=== PATIENT | female | born 1980 | race American Indian/Alaskan Native ===

== ENCOUNTER 2017-10-23 09:00 | Inpatient (IN) | payer OTHER ==
--- NOTE | 2017-10-23 09:32 | Anesthesia Consultation ---
Anesthesia Consult and Med Hx Date of service: 10/27/17 - Airway Anesthetic Teeth Evaluation: Poor ROM Head & Neck: Adequate Mental/Hyoid Distance: Adequate Mallampati Class: Class II Intubation Access Assessment: Probably Good - Pulmonary Exam CTA: Yes - Cardiac Exam Cardiac Exam: RRR - Pre-Operative Health Status ASA Pre-Surgery Classification: ASA2 Proposed Anesthetic Plan: General - Pulmonary Hx Smoking: No - Hematic Hx Anemia: Yes
[2017-10-23 09:41] LABS: Basophils % (Auto) 0.7 % (0.0-1.8); Eosinophils # (Auto) 0.2 K/mm3 (0.0-0.4); Eosinophils % (Auto) 3.2 % (0.0-4.3); Hematocrit 34.7 % (30.3-42.9); Hemoglobin 11.6 gm/dl (10.1-14.3); Lymphocytes % (Auto) 40.3 % (13.4-35.0); Mean Corpuscular HGB Conc 33 % (30-34); Mean Corpuscular Hemoglobin 30 pg (28-32); Mean Corpuscular Volume 89 fl (79-97); Monocytes # (Auto) 0.3 K/mm3 (0.0-0.8); Monocytes % (Auto) 6.6 % (0.0-7.3); Platelet Count 340 K/mm3 (140-440); Red Blood Count 3.92 M/mm3 (3.65-5.03); Red Cell Distribution Width 14.9 % (13.2-15.2)
[2017-10-27] MEDS ORDERED: ZOFRAN ONE (08:30)
[2017-10-27] MEDS ORDERED: ZEMURON IV ONE (08:37)
[2017-10-27] MEDS ORDERED: DIPRIVAN 10 MG/ML IV ONE (08:37)
[2017-10-27] MEDS ORDERED: XYLOCAINE MPF 2% ONE (08:37)
[2017-10-27] MEDS ORDERED: DILAUDID ONE (08:37)
[2017-10-27] MEDS ORDERED: MARCAINE 0.5% 30 ML INFILTRATI ONE (09:05)
[2017-10-27] MEDS ORDERED: DECADRON ONE ×2 (09:05)
--- NOTE | 2017-10-27 09:48 | History and Physical Report ---
History of Present Illness Date of examination: 10/27/17 Date of admission: 10/27/17 07:52 Chief complaint: Symptomatic uterine fibroids History of present illness: Pt is a 36yo BF LMP 10/09/17 presents for surgical evaluation and treatment of uterine fibroids. Pelvic u/s showed an enlarged uterus 20 x 17 x 12cm with multiple fibroids, the largest measuring 10 x 8 cm. And endometrial biopsy was done which was benign. Patient had a previous tubal ligation and does not desire future fertility. She was therefore scheduled for a total abdominal hysterectomy with ovarian conservation. 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 Family/Genetic History: none Social history: no significant social history, single Medications and Allergies Allergies Allergy/AdvReac Type Severity Reaction Status Date / Time No Known Allergies Allergy Verified 10/21/17 13:18 Home Medications Medication Instructions Recorded Confirmed Last Taken Type Docusate Sodium [Dok] 100 mg PO BID 10/20/17 10/27/17 10/24/17 History Ferrous Sulfate [Feosol] 325 mg PO TID 10/20/17 10/27/17 10/24/17 History Active Meds: Active Medications Celecoxib (Celebrex) 200 mg PO PREOP NR Stop: 10/27/17 11:00 Last Admin: 10/27/17 09:32 Dose: 200 mg Gabapentin (Neurontin) 300 mg PO PREOP NR Stop: 10/27/17 11:00 Last Admin: 10/27/17 09:32 Dose: 300 mg Lactated Ringer's (Lactated Ringers) 1,000 mls @ 100 mls/hr IV DIRECT YUMIKO Last Admin: 10/27/17 09:30 Dose: 100 mls/hr Cefazolin Sodium (Ancef/Sterile Water 2 Gm/20 Ml) 2 gm in 20 mls @ 80 mls/hr IV PREOP YUMIKO; Protocol Midazolam HCl (Versed) 2 mg IV PREOP NR Stop: 10/27/17 23:59 Review of Systems All systems: negative - Vital Signs Vital signs: Vital Signs Temp Pulse Resp BP 98.2 F 80 18 110/82 10/23/17 09:00 10/23/17 09:00 10/23/17 09:00 10/23/17 09:00 Temp Pulse Resp BP Pulse Ox 98 F 68 18 106/67 100 10/27/17 08:45 10/27/17 08:45 10/27/17 08:45 10/27/17 08:45 10/27/17 08:45 - Physical Exam Breasts: Positive: deferred Cardiovascular: Regular rate Lungs: Positive: Clear to auscultation Abdomen: Positive: normal appearance Genitourinary (Female): Positive: normal external genitalia Uterus: Positive: enlarged Extremities: Positive: normal Results Result Diagrams: 10/23/17 09:00 All other labs normal. Ultrasound: report reviewed Assessment and Plan - Patient Problems (1) Uterine fibroid Onset Date: 10/27/17 Current Visit: Yes Status: Acute Qualifiers: Uterine leiomyoma location: intramural, submucous, and subserous Qualified Code(s): D25.1 - Intramural leiomyoma of uterus; D25.0 - Submucous leiomyoma of uterus; D25.2 - Subserosal leiomyoma of uterus Plan to address problem: A: Symptomatic uterine fibroids Menorrhagia - most likely due to uterine fibroids Anemia - most likely due to menorrhagia P: Admit for a CAT with Bilateral salpingectomy (2) Menorrhagia with irregular cycle Onset Date: 10/27/17 Current Visit: Yes Status: Acute
[2017-10-27] MEDS ORDERED: LACTATED RINGERS 1,000 ML IV SCH (10:00)
[2017-10-27] MEDS ORDERED: ANCEF/STERILE WATER 2 GM/20 ML 2 GM/20 ML SYRINGE IV NR (10:00)
[2017-10-27] MEDS ORDERED: VERSED IV NR (10:00)
[2017-10-27] MEDS ORDERED: NEURONTIN PO NR (10:00)
[2017-10-27] MEDS ORDERED: NACL 0.9% IR ONE (12:00)
[2017-10-27] MEDS ORDERED: TYLENOL PO PRN (12:07)
[2017-10-27] MEDS ORDERED: MILK OF MAGNESIA PO PRN (12:07)
[2017-10-27] MEDS ORDERED: ZOFRAN IV PRN (12:07)
--- NOTE | 2017-10-27 12:26 | Operative Report ---
Operative Report Operative Report: Date of procedure: 10/27/2017 Pre-operative diagnosis: 1. Symptomatic uterine fibroids 2. Menorrhagia Post-operative diagnosis: Same with right endometrioma 3. Extensive lower uterine segment adhesions Procedure name(s): 1. Total abdominal hysterectomy 2. Right salpingo- oophorectomy 3. Lysis of extensive lower uterine segment adhesions Surgeon: Roderick Shane MD Aids Counselor: Orlando Verma CSA Anesthesia: SATISH Block followed by general endotracheal intubation by Dr. Jose EBL: 350 mls Findings: A 20 week size uterus with multiple fibroids. A large right endometrioma. A normal left ovary adherent to the pelvic sidewall. Extensive lower uterine segment adhesions. Procedure: After the patient was first correctly identified and after general anesthesia was administered she was prepped and draped in usual in the usual sterile fashion and placed in the dorsolithotomy position. The skin knife was used to make a transverse skin incision through the previous skin scars. The incision was extended down to the layer of the fascia which was nicked in the midline and extended laterally using Bovie cautery. The rectus muscles were dissected off the rectus fascia both superiorly and inferiorly, the rectus bellies in the midline and the peritoneum was entered under direct visualization. Exploration of the pelvic organs found the uterus to be enlarged up to the umbilicus and the tubes showed evidence of previous tubal ligation bilaterally and right ovary was enlarged with chocolate cystic fluid, and the left ovary was adherent to the left pelvic sidewall. Next the bowels were packed back and the right round ligament was clamped, cauterized and cut using the Enseal device. The right infundibulopelvic ligament were doubly clamped, cauterized and cut, thus freeing the right ovarian mass from the right pelvic sidewall. The left round ligament was clamped, cauterized and cut, and the left utero-ovarian ligaments were doubly clamped, cauterized and cut thus freeing the left ovary from the left uterine sidewall. The uterine vessels were then skeletonized bilaterally, and lower uterine segment adhesions were taken down using both sharp and blunt dissection, the bladder flap was taken down anteriorly. The uterine vessels were then doubly clamped cut and suture ligated bilaterally, and the cardinal ligaments were sequentially clamped cut and suture ligated down to the level of the uterosacral ligaments. The cervix was then amputated from the vaginal cuff and the specimen was handed off the surgical field. The vaginal cuff was then made hemostatic using several sutures of 0 Vicryl suture in a [id number] configuration. After excellent hemostasis was assured copious amounts of irrigation was then performed. The Tisseel sealant was then sprayed across the vaginal cuff and the superior pedicles bilaterally and after excellent hemostasis was assured the procedure was considered complete. All instruments removed from abdomen, and the peritoneum was closed using 0 Vicryl suture in a running interlocking fashion and the rectus muscles were also loosely re-approximated using 0 Vicryl suture in a [id number] configuration. The fascia was then re-approximated using # 1 Vicryl suture in a running interlocking fashion, the subcutaneous layer made hemostatic using Bovie cautery and the skin edges re-approximated using 4-0 Vicryl suture in a sub-cuticular fashion. Patient tolerated the procedure well was transported to recovery room in stable condition.
[2017-10-27] MEDS: TORADOL IV SCH ×2 (13:10→18:30)
[2017-10-27] MEDS: PERCOCET 5/325 PO PRN (15:51)
[2017-10-27] MEDS: NORCO 5/325 PO PRN (19:51)
[2017-10-27] MEDS: D5LR 1,000 ML IV SCH (19:56)
[2017-10-27] MEDS: ANCEF/NS 1 GM/50 ML 1 GM/50 ML BAG IV SCH (20:42)
[2017-10-27] MEDS: COLACE PO SCH (22:27)
[2017-10-28] MEDS: TORADOL IV SCH ×4 (01:04→20:49)
[2017-10-28] MEDS: ANCEF/NS 1 GM/50 ML 1 GM/50 ML BAG IV SCH (03:46)
[2017-10-28] MEDS: D5LR 1,000 ML IV SCH (04:41)
[2017-10-28 06:09] LABS: Hematocrit 29.7 % (30.3-42.9); Hemoglobin 9.8 gm/dl (10.1-14.3)
--- NOTE | 2017-10-28 08:32 | Progress Note ---
Assessment and Plan - Patient Problems (1) Uterine fibroid Onset Date: 10/27/17 Current Visit: Yes Status: Resolved Qualifiers: Uterine leiomyoma location: intramural, submucous, and subserous Qualified Code(s): D25.1 - Intramural leiomyoma of uterus; D25.0 - Submucous leiomyoma of uterus; D25.2 - Subserosal leiomyoma of uterus (2) Menorrhagia with irregular cycle Onset Date: 10/27/17 Current Visit: Yes Status: Resolved (3) S/P CAT-BSO Onset Date: 10/28/17 Current Visit: Yes Status: Resolved Plan to address problem: A: S/P CAT/RSO - POD #1 Doing well Asymptomatic anemia - stable P: Continue RPOC Anticipate discharge in 24-48hrs Subjective - Subjective Date of service: 10/28/17 Principal diagnosis: s/p CTA/RSO - POD #1 Interval history: Pt is feeling well s/p CAT/RSO. She is tolerating a liquid diet without nausea or vomiting. Patient reports: appetite normal, voiding normally, pain well controlled, ambulating normally, no dizzy ambulation, no flatus, no nauseated Objective - Vital Signs Latest vital signs: Vital Signs Temp Pulse Resp Resp BP BP Pulse Ox 10/28/17 04:05 98.1 F 64 18 90/41 100 10/28/17 00:00 98.5 F 64 18 86/44 100 10/27/17 22:00 18 10/27/17 21:47 18 10/27/17 20:05 98.1 F 77 18 89/47 100 10/27/17 19:51 17 10/27/17 18:30 18 10/27/17 15:51 97.8 F 76 20 98/48 100 10/27/17 14:40 100 10/27/17 13:40 98.9 F 60 18 100/50 100 10/27/17 13:18 60 16 96/50 100 10/27/17 13:10 16 10/27/17 13:03 98.2 F 61 15 96/50 100 10/27/17 12:48 58 L 16 92/45 100 10/27/17 12:43 58 L 16 93/50 100 10/27/17 12:38 58 L 16 95/50 100 10/27/17 12:33 98.8 F 61 14 94/49 100 10/27/17 08:45 98 F 68 18 106/67 100 Intake and Output 10/27/17 10/28/17 10/28/17 22:59 06:59 14:59 Intake Total 100 1240 Output Total 225 2000 Balance -125 -760 Intake: IV 50 1000 ANCEF/NS 1 GM/50 ML 1 gm 50 In 50 ml @ 100 mls/hr IV Q8H YUMIKO Rx#:[id number] D5lr 1,000 ml @ 125 mls/ 1000 hr IV DIRECT YUMIKO Rx#: [id number] Oral 50 240 Output: Urine 225 2000 Indwelling Catheter 225 2000 Other: Total, Intake Amount 50 120 Total, Output Amount 225 1100 Voiding Method Indwelling Catheter - Exam Breasts: Present: deferred Cardiovascular: Present: Regular rate Lungs: Present: Clear to auscultation Abdomen: Present: normal appearance, soft Extremities: Present: normal Incision: Present: normal, dry, intact - Labs Labs: Abnormal lab results 10/28/17 Range/Units 05:45 Hgb 9.8 L (10.1-14.3) gm/dl Hct 29.7 L (30.3-42.9) % Laboratory Tests 10/23/17 10/23/17 10/27/17 09:00 09:00 08:35 WBC 5.0 RBC 3.92 Hgb 11.6 Hct 34.7 MCV 89 MCH 30 MCHC 33 RDW 14.9 Plt Count 340 Lymph % (Auto) 40.3 H [place] % (Auto) 6.6 Eos % (Auto) 3.2 Baso % (Auto) 0.7 Lymph # 2.0 [place] # 0.3 Eos # 0.2 Baso # 0.0 Seg Neutrophils % 49.2 Seg Neutrophils # 2.5 HCG, Qual Negative Blood Type O POSITIVE Antibody Screen Negative 10/28/17 05:45 WBC RBC Hgb 9.8 L Hct 29.7 L MCV MCH MCHC RDW Plt Count Lymph % (Auto) [place] % (Auto) Eos % (Auto) Baso % (Auto) Lymph # [place] # Eos # Baso # Seg Neutrophils % Seg Neutrophils # HCG, Qual Blood Type Antibody Screen
[2017-10-28] MEDS: COLACE PO SCH ×2 (10:25→21:20)
[2017-10-28 13:55] LABS: Hematocrit 27.6 % (30.3-42.9); Hemoglobin 9.5 gm/dl (10.1-14.3)
[2017-10-28] MEDS: NORCO 5/325 PO PRN (14:55)
[2017-10-28] MEDS: PERCOCET 5/325 PO PRN (21:20)
[2017-10-29] MEDS ORDERED: BENADRYL IV PRN (02:15)
[2017-10-29] MEDS: TORADOL IV SCH ×2 (02:38→06:39)
--- NOTE | 2017-10-29 09:45 | Progress Note ---
Assessment and Plan - Patient Problems (1) Uterine fibroid Onset Date: 10/27/17 Current Visit: Yes Status: Resolved Qualifiers: Uterine leiomyoma location: intramural, submucous, and subserous Qualified Code(s): D25.1 - Intramural leiomyoma of uterus; D25.0 - Submucous leiomyoma of uterus; D25.2 - Subserosal leiomyoma of uterus (2) Menorrhagia with irregular cycle Onset Date: 10/27/17 Current Visit: Yes Status: Resolved (3) S/P CAT-BSO Onset Date: 10/28/17 Current Visit: Yes Status: Resolved Plan to address problem: A: S/P CAT/RSO - POD #2 Doing well Asymptomatic anemia - stable P: May go home today. Subjective - Subjective Date of service: 10/29/17 Principal diagnosis: s/p CAT/RSO - POD #2 Interval history: Pt is feeling well s/p CAT/RSO. She is tolerating a reg diet without nausea or vomiting, ambulating and voiding without difficulty. Patient reports: appetite normal, voiding normally, pain well controlled, flatus , ambulating normally, no dizzy ambulation, no nauseated Objective - Vital Signs Latest vital signs: Vital Signs Temp Pulse Resp BP BP Pulse Ox 10/29/17 08:57 99.0 F 68 18 98/50 10/29/17 04:45 98.4 F 56 L 16 89/47 10/29/17 00:20 98.5 F 64 16 97/47 10/28/17 21:10 99.6 F 57 L 18 98/47 99 10/28/17 16:44 92/41 10/28/17 16:40 88/40 10/28/17 16:37 98.3 F 70 18 91/33 100 10/28/17 11:42 92/45 10/28/17 11:39 98.8 F 58 L 18 95/37 96 Intake and Output 10/28/17 10/29/17 10/29/17 22:59 06:59 14:59 Intake Total 1050 180 Balance 1050 180 Intake: IV 1050 ANCEF/NS 1 GM/50 ML 1 gm 50 In 50 ml @ 100 mls/hr IV Q8H YUMIKO Rx#:[id number] D5lr 1,000 ml @ 125 mls/ 1000 hr IV DIRECT YUMIKO Rx#: [id number] Intake, Free Water 180 Other: Voiding Method Toilet Toilet # Voids Void 2 Weight 78.47 kg - Exam Breasts: Present: deferred Cardiovascular: Present: Regular rate Lungs: Present: Clear to auscultation Abdomen: Present: normal appearance, soft Incision: Present: normal, dry, intact - Labs Labs: Abnormal lab results 10/28/17 Range/Units 13:36 Hgb 9.5 L (10.1-14.3) gm/dl Hct 27.6 L (30.3-42.9) %
--- NOTE | 2017-10-29 09:47 | Discharge Summary ---
Providers - Providers Date of Admission: 10/27/17 07:52 Date of discharge: 10/29/17 Attending physician: KAMINI BUI Hospitalization Reason for admission: other (Symptomatic uterine fibroids; Menorrhagia) Procedure: other (Total Abdominal Hysterectomy with Right SalpingoOophorectomy) Incision: normal, dry, intact Other procedures: none complications: none Discharge diagnosis: other (S/P CAT/RSO) Hospital course: Pt is a 36yo BF LMP 10/09/17 who presented for surgical evaluation and treatment of uterine fibroids. Pelvic u/s showed an enlarged uterus 20 x 17 x 12cm with multiple fibroids, the largest measuring 10 x 8 cm. And endometrial biopsy was done which was benign. Patient had a previous tubal ligation and did not desire future fertility. She underwent an uncomplicated Total Abdominal Hysterectomy with Right Ovarian SalpingoOophorectomy, and by POD #2 she was tolerating a reg diet without nausea or vomiting, ambulating and voiding without difficulty. She was therefore discharged to home on POD #2 in stable condition. Condition at discharge: Good Disposition: DC-01 TO HOME OR SELFCARE - Discharge Diagnoses (1) Uterine fibroid Status: Resolved Qualifiers: Uterine leiomyoma location: intramural, submucous, and subserous Qualified Code(s): D25.1 - Intramural leiomyoma of uterus; D25.0 - Submucous leiomyoma of uterus; D25.2 - Subserosal leiomyoma of uterus (2) Menorrhagia with irregular cycle Status: Resolved Plan - Discharge Medications Prescriptions: Ferrous Sulfate [Feosol 325 MG tab] 325 mg PO QDAY #30 tablet HYDROcodone/APAP 5-325 [Uledi 5-325 mg TAB] 1 each PO Q6HR PRN #30 tablet PRN Reason: Pain, Moderate (4-6) Ibuprofen [Motrin] 800 mg PO Q8HR PRN #30 tablet PRN Reason: Moder Pain Unrelieved By Uledi - Provider Discharge Summary Activity: routine, no sex for 6 weeks, no heavy lifting 4 weeks, no strenuous exercise Diet: routine Instructions: routine Additional instructions: [] Smoking cessation referral if applicable(refer to patient education folder for contact #) [] Refer to [facility]'s [facility] Booklet Call your doctor immediately for: * Fever > 100.5 * Heavy vaginal bleeding ( >1 pad per hour) * Severe persistent headache * Shortness of breath * Reddened, hot, painful area to leg or breast * Drainage or odor from incision. * Keep incision clean and dry at all times and follow doctor's instructions regarding bathing/showering - Follow up plan Follow up: DIANA SINGH [Other] - 7 Days KAMINI BUI MD [Staff Physician] - 14 Days
[2017-10-29 12:20] VITALS: BP 96/68
== END 2017-10-29 12:25 | disposition home or self-care (01) | DRG 742 ==
LOC: 3A 10-27 07:52 → OB 10-27 13:57
PROVIDERS: ADMIT Obstetrics & Gynecology; ATTEND Obstetrics & Gynecology
PROC: 0UT90ZZ Resection of Uterus, Open Approach (ICD-10-PCS; principal; 2017-10-27)
PROC: 0UT50ZZ Resection of Right Fallopian Tube, Open Approach (ICD-10-PCS; 2017-10-27)
PROC: 0UT00ZZ Resection of Right Ovary, Open Approach (ICD-10-PCS; 2017-10-27)
PROC: 0TN70ZZ Release Left Ureter, Open Approach (ICD-10-PCS; 2017-10-27)
PROC: 0UN10ZZ Release Left Ovary, Open Approach (ICD-10-PCS; 2017-10-27)
DX: D25.0 Submucous leiomyoma of uterus (principal); D62 Acute posthemorrhagic anemia; D25.1 Intramural leiomyoma of uterus; D25.2 Subserosal leiomyoma of uterus; N73.6 Female pelvic peritoneal adhesions (postinfective); N92.0 Excessive and frequent menstruation with regular cycle; Z98.51 Tubal ligation status
CPT/HCPCS: 36415; 84703; 85014; 85018; 85025; 86850; 86900; 86901; 88307; C9250; J0690; J1100; J1170; J1200; J1885; J2250; J2405; J2704; J7120; J7121